=== PATIENT | male | born 1995 | race Caucasian/White ===

== ENCOUNTER 2016-10-26 05:03 | Emergency (ER) | payer BC ==
[2016-10-26] MEDS ORDERED: ARZOL Silver Nitrate Applicator TP ONE ×3 (05:38→06:40)
[2016-10-26] MEDS ORDERED: XYLOCAINE 1%/Epi 1:100000 MDV 20 ML ONE (05:43)
--- NOTE | 2016-10-26 05:52 | ERPHSYRPT ---
- History of Present Illness Time Seen by Provider: 10/26/16 05:31 Source: patient Exam Limitations: no limitations Patient Subjective Stated Complaint: pt states he had a blood blister on his back that popped tonight and it hasnt stopped bleeding. Triage Nursing Assessment: pt alert and oriented, answers questions approp. pt ambulatory with steady gait noted. respirations nonlabored with lungs cta. raised red blister to lt mid back with blood coming from center. Physician History: The patient is a 21-year-old male with his father complaining of a small blood Ratna on the left lower part of his back for the last 1-1/2 weeks. Over the last day the blood blister enlarged significantly. The enlarged blood blister started to bleed about 4 hours ago and has been very difficult to get clotted off. Patient denies any trauma to the area. The patient denies any clotting problems. Patient's past medical history is significant for scoliosis and 8 back surgeries for scoliosis. Timing/Duration: hour(s) (4) Quality: other (bleeding) Severity: moderate Location: torso Possible Causes: no cause identified Associated Symptoms: other (blood blister) Allergies/Adverse Reactions: morphine Adverse Reaction (Verified 10/26/16 05:23) Home Medications: No Home Meds 1 ea UD 10/26/16 [History] Hx Tetanus, Diphtheria Vaccination/Date Given: (unknown) Hx Influenza Vaccination/Date Given: No Hx Pneumococcal Vaccination/Date Given: No Immunizations Up to Date: Yes - Review of Systems Constitutional: No Fever, No Chills Eyes: No Symptoms Ears, Nose, & Throat: No Symptoms Respiratory: No Cough, No Dyspnea Cardiac: No Chest Pain, No Edema, No Syncope Abdominal/Gastrointestinal: No Abdominal Pain, No Nausea, No Vomiting, No Diarrhea Genitourinary Symptoms: No Dysuria Musculoskeletal: Back Pain (chronic), No Neck Pain Skin: Skin Lesions Neurological: No Dizziness, No Focal Weakness, No Sensory Changes Psychological: No Symptoms Endocrine: No Symptoms Hematologic/Lymphatic: No Symptoms Immunological/Allergic: No Symptoms All Other Systems: Reviewed and Negative - Past Medical History Pertinent Past Medical History: No Other Medical History: scoliosis - Past Surgical History Past Surgical History: Yes Other Surgical History: back surgery x8 to correct scoliosis - Social History Smoking Status: Never smoker Exposure to second hand smoke: Yes Drug Use: none Patient Lives Alone: No - Nursing Vital Signs Nursing Vital Signs: Initial Vital Signs Temperature 97.9 F Temperature Source Oral Pulse Rate 92 Respiratory Rate 16 Blood Pressure [Right Arm] 155/98 Pain Intensity 1 - Physical Exam General Appearance: no apparent distress, alert Eye Exam: PERRL/EOMI, eyes nml inspection Ears, Nose, Throat Exam: normal ENT inspection, pharynx normal, moist mucous membranes Neck Exam: normal inspection, non-tender, supple, full range of motion Respiratory Exam: normal breath sounds, lungs clear, No respiratory distress Cardiovascular Exam: regular rate/rhythm, normal heart sounds Gastrointestinal/Abdomen Exam: soft, mass, No tenderness Rectal Exam: not done Back Exam: other (back has old scar in midline from upper thoracic to sacrum for prior surgeries. There is a 0.5 mm raised blood-filled skin tag with small amount of bleeding from the center. Non-tender.) Extremity Exam: normal inspection, normal range of motion Neurologic Exam: alert, oriented x 3, cooperative, normal mood/affect, sensation nml, No motor deficits Skin Exam: normal color, warm, dry, other (blood-filled lesion as described in back exam.) SpO2: 99 Oxygen Delivery: Room Air Procedures - Incision and Drainage Timeout: Performed (20 min) Site: left lower back Anesthesia: 1% lidocaine w/epi cc's of anesthesia: other (10) Blade Size: 11 I & D Procedure: betadine prep, sterile drapes applied, sterile dressing applied , other (eliptical incision made with 11 blade scapel measuring 2.5 cm. bleeding hemagioma excised without difficulty. Tissue obtained and sent to pathology for evaluation.) Results: other (hemagioma obtained.) Progress: Wound closed with 4 5-0 ethilon sutures with hemostasis. Pt tolerated procedure well. - Progress Progress: improved Counseled pt/family regarding: diagnosis, need for follow-up - Departure Time of Disposition: 06:29 Departure Disposition: Home Clinical Impression: Hemangioma Condition: Stable Critical Care Time: No Additional Instructions: Keep area clean and dry. You may take a brief shower. Take augmentin twice a day for 10 days. Have sutures removed in 12 to 14 days. Prescriptions: Amoxicillin/Potassium Clav [Augmentin 875-125 Tablet] 875 mg PO BID #20 tablet
[2016-10-26] MEDS ORDERED: BACIGUENT PACKET ONE (06:15)
[2016-10-26] MEDS ORDERED: XYLOCAINE 1%/Epi 1:100000 MDV 20 ML IJ ONE (06:38)
[2016-10-26] MEDS ORDERED: BACIGUENT PACKET TP ONE (06:39)
[2016-10-26 06:54] VITALS: BP 159/89; PULSE 91; O2SAT 97
== END 2016-10-26 06:53 | disposition home or self-care (01) ==
LOC: ED 05:03
DX: D18.00 Hemangioma unspecified site (principal); S30.820A Blister (nonthermal) of lower back and pelvis, initial encounter
CPT/HCPCS: 36415; 88305; 99283; 99284

== ENCOUNTER 2021-03-16 09:06 | Emergency (ER) | payer OTHER ==
[2021-03-16 09:19] VITALS: BP 133/98; PULSE 89; O2SAT 99
[2021-03-16] MEDS ORDERED: Sodium Chloride 0.9% 1000 ML 1,000 ML IV STA (09:31)
[2021-03-16] MEDS ORDERED: TORAdol 30 mg Injection IV ONE (09:31)
--- NOTE | 2021-03-16 09:31 | ERPHSYRPT ---
- History of Present Illness Time Seen by Provider: 03/16/21 09:26 Source: patient Exam Limitations: no limitations Patient Subjective Stated Complaint: Pt c/o of mouth pain causing a headache for the past week Triage Nursing Assessment: Pt brought self to the ER, vitals wnl, rates pain as 6/10, hx of bad teeth due to placement, mouth pain, head ache, doesn't appear to be in any distress Physician History: pt has hx migraine not on chronic meds but prior pain clinic for neck/back. No trauma. no blood thinner, tender right upper incisor palp perc reproduces pain exactly no fluctuance to draine/incise. no meningismis , swallowing OK. TM nl bilateral. neck nontender , digastric and floor of mouth all nontender. Timing/Duration: gradual onset, days Severity: moderate ENT Location: dental Prearrival Treatment: over the counter meds Modifying Factors: Improves With: nothing Associated Symptoms: facial pain/swelling, headache, No dizziness, No drooling Allergies/Adverse Reactions: morphine Adverse Reaction (Verified 03/16/21 09:18) Hx Tetanus, Diphtheria Vaccination/Date Given: (unknown) Hx Influenza Vaccination/Date Given: No Hx Pneumococcal Vaccination/Date Given: No Travel Risk - International Travel Have you traveled outside of the country in past 3 weeks: No - Coronavirus Screening Are you exhibiting any of the following symptoms?: No Close contact with a COVID-19 positive Pt in past 14-21 Days: No - Vaccine Status Have you recieved a Covid-19 vaccination: No - Review of Systems Constitutional: No Fever, No Chills Eyes: No Symptoms Ears, Nose, & Throat: Mouth Pain (dental) Respiratory: No Cough, No Dyspnea Cardiac: No Chest Pain, No Edema, No Syncope Abdominal/Gastrointestinal: No Abdominal Pain, No Nausea, No Vomiting, No Diarrhea Genitourinary Symptoms: No Dysuria Musculoskeletal: No Back Pain, No Neck Pain Skin: No Symptoms, No Rash Neurological: No Dizziness, No Focal Weakness, No Sensory Changes Psychological: No Symptoms Endocrine: No Symptoms All Other Systems: Reviewed and Negative - Past Medical History Pertinent Past Medical History: Yes Musculoskeletal History: Arthritis, Fibromyalgia Other Medical History: scoliosis - Past Surgical History Past Surgical History: Yes Other Surgical History: back surgery x8 to correct scoliosis - Social History Smoking Status: Never smoker Exposure to second hand smoke: Yes Drug Use: none Patient Lives Alone: No - Nursing Vital Signs Nursing Vital Signs: Initial Vital Signs Temperature 98.1 F 03/16/21 09:11 Pulse Rate 89 03/16/21 09:11 Blood Pressure 133/98 03/16/21 09:11 O2 Sat by Pulse Oximetry 99 03/16/21 09:11 Pain Scale Pain Intensity 6 - Physical Exam General Appearance: no apparent distress, alert Eye Exam: bilateral eye: normal inspection, PERRL, EOMI, other (fundi benign) Ear Exam: bilateral ear: auricle normal, canal normal, TM normal Nasal Exam: normal inspection Throat Exam: pharynx normal, moist mucus membranes, No tonsillar exudate Neck Exam: supple Cardiovascular/Respiratory Exam: normal breath sounds, regular rate/rhythm Abdominal Exam: non-tender, soft Neurologic Exam: alert, oriented x 3, billet straightener II-XII nml as tested, normal mood/affect, nml cerebellar function, nml station & gait, sensation nml, No motor deficits, No facial droop, No slurred speech, No aphasia Skin Exam: normal color, warm, dry SpO2 Interpretation: normal SpO2: 99 O2 Delivery: Room Air - Course Nursing assessment & vital signs reviewed: Yes Ordered Tests: Active Orders 24 hr Category Date Time Status IV Insertion STAT Care 03/16/21 09:31 Active FACIAL BONES WO CONTRAST [CT] Stat Exams 03/16/21 09:33 Taken CBC W DIFF Stat Lab 03/16/21 09:57 Completed Medication Summary Discontinued Medications Generic Name Dose Route Start Last Admin Trade Name Bacilioq PRN Reason Stop Dose Admin Sodium Chloride 1,000 mls @ 999 mls/hr 03/16/21 09:31 03/16/21 10:22 Sodium Chloride 0.9% 1000 Ml IV 03/16/21 10:31 999 mls/hr .Q1H1M STA Administration Ceftriaxone Sodium/Dextrose 1 g in 50 mls @ 100 mls/hr 03/16/21 09:34 03/16/21 10:22 Rocephin 1 Gm-D5w 50 Ml Bag IV 03/16/21 10:03 100 mls/hr STAT STA 100 mls/hr Administration Sodium Chloride Confirm 03/16/21 10:19 Sodium Chloride 0.9% 1000 Ml Administered 03/16/21 10:20 Dose 1,000 mls @ ud .ROUTE .STK-MED ONE Ceftriaxone Sodium/Dextrose Confirm 03/16/21 10:19 Rocephin 1 Gm-D5w 50 Ml Bag Administered 03/16/21 10:20 Dose 1 g in 50 mls @ ud IV .STK-MED ONE Ketorolac Tromethamine 30 mg 03/16/21 09:31 03/16/21 10:22 Toradol 30 Mg Injection IV 03/16/21 09:32 30 mg STAT ONE Administration Ketorolac Tromethamine Confirm 03/16/21 10:19 Toradol 30 Mg Injection Administered 03/16/21 10:20 Dose 30 mg .ROUTE .STK-MED ONE Metoclopramide HCl 10 mg 03/16/21 09:32 03/16/21 10:22 Reglan 10 Mg/2 Ml IV 03/16/21 09:33 10 mg STAT ONE Administration Metoclopramide HCl Confirm 03/16/21 10:19 Reglan 10 Mg/2 Ml Administered 03/16/21 10:20 Dose 10 mg .ROUTE .STK-MED ONE Lab/Rad Data: Laboratory Result Diagrams 03/16/21 09:57 Laboratory Results 03/16/21 Range/Units 09:57 WBC 9.1 (4.0-10.5) K/mm3 RBC 5.05 (4.1-5.6) M/mm3 Hgb 14.3 (12.5-18.0) gm/dl Hct 44.1 (42-50) % MCV 87.3 (78-100) fl MCH 28.3 (26-32) pg MCHC 32.4 (32-36) g/dl RDW 13.4 (11.5-14.0) % Plt Count 241 (150-450) K/mm3 MPV 8.9 (7.5-11.0) fl Gran % 63.6 (36.0-66.0) % Eos # (Auto) 0.45 (0-0.5) Absolute Lymphs (auto) 2.09 (1.0-4.6) Absolute Monos (auto) 0.73 (0.0-1.3) Lymphocytes % 23.1 L (24.0-44.0) % Monocytes % 8.1 (0.0-12.0) % Eosinophils % 5.0 (0.00-5.0) % Basophils % 0.2 (0.0-0.4) % Absolute Granulocytes 5.76 (1.4-6.9) Basophils # 0.02 (0-0.4) - Progress Progress: improved, re-examined Progress Note: 03/16/21 10:40 pt had good pain relief and feels good to go. He feels that OTC Alleve will handle pain and will see Dentist to drain abscess this week early and return meantime if not improving. Counseled pt/family regarding: lab results, diagnosis, need for follow-up, rad results - Departure Departure Disposition: Home Clinical Impression: right upper dental abscess Condition: Good Critical Care Time: No Referrals: LOAN ISLAS [Primary Care Provider] - Instructions: Tooth Abscess (DC), Dental Pain (DC) Additional Instructions: see the dentist this week YAIR to drain abscess/ have definitive Tx. Return meantime if not improving, vomiting, fever or other concerns. Use over the counter Alleve for pain. also followup with your DrEagle for blood pressure elevation Prescriptions: Amox Tr/Potass Clav. 875 mg [Augmentin 875-125 Tablet] 875 mg PO BID #20 tablet
[2021-03-16] MEDS ORDERED: Reglan 10 MG/2 ML IV ONE (09:32)
[2021-03-16] MEDS ORDERED: ROCEPHIN 1 Gm-D5w 50 ml Bag** 1 G/50 ML IVPB IV STA (09:34)
[2021-03-16 10:07] LABS: Absolute Neutrophil Ct (ANC) 5.76 (1.4-6.9); BASOPHIL % 0.2 % (0.0-0.4); Basophil (Absolute #) 0.02 (0-0.4); Eosinophil (Absolute #) 0.45 (0-0.5); Hematocrit 44.1 % (42-50); Hemoglobin 14.3 gm/dl (12.5-18.0); Lymphocyte (Absolute #) 2.09 (1.0-4.6); Lymphocytes % 23.1 % (24.0-44.0); Mean Cell Volume 87.3 fl (78-100); Mean Corpuscular Hemoglobin 28.3 pg (26-32); Mean Corpuscular Hgb Concent. 32.4 g/dl (32-36); Mean Platelet Volume 8.9 fl (7.5-11.0); Monocyte (Absolute #) 0.73 (0.0-1.3); Monocytes % 8.1 % (0.0-12.0); Neutrophil % 63.6 % (36.0-66.0); Platelet Count 241 K/mm3 (150-450); Red Blood Count 5.05 M/mm3 (4.1-5.6); Red Cell Distribution Width 13.4 % (11.5-14.0); White Blood Count 9.1 K/mm3 (4.0-10.5)
[2021-03-16] MEDS ORDERED: ROCEPHIN 1 Gm-D5w 50 ml Bag** 1 G/50 ML IVPB IV ONE (10:19)
[2021-03-16] MEDS ORDERED: TORAdol 30 mg Injection ONE (10:19)
[2021-03-16] MEDS ORDERED: Reglan 10 MG/2 ML ONE (10:19)
[2021-03-16] MEDS ORDERED: Sodium Chloride 0.9% 1000 ML 1,000 ML ONE (10:19)
--- NOTE | 2021-03-16 19:26 | XRAY ---
Indication: Upper tooth pain. Abscess. Multiple contiguous images obtained through the facial bones without contrast. Comparison: None Right maxilla demonstrates a 1.5 cm right paramedian indeterminant cyst. No fracture, suspicious bony lesions, or radiopaque foreign body. Orbits including roof, rotmhan, and floors are intact. Minimal mucosal thickening both ethmoid and lesser degree both frontal sinuses. Remaining paranasal sinuses and nasal passages are clear. Minimal nasal septal deviation to the left. There are centimeter/subcentimeter submandibular and cervical lymph nodes bilaterally, none pathologically enlarged. Visualized noncontrasted soft tissues including base of the brain unremarkable. Impression: 1. Indeterminant 1.5 cm right paramedian maxilla cyst. 2. Minimal paranasal sinus disease and minimal nasal septal deviation. 3. Remaining CT facial bones without contrast exam is negative. Comment: Preliminary interpretation was made by [facility]. No critical discrepancy.
== END 2021-03-16 10:53 | disposition home or self-care (01) ==
LOC: ED 09:06
DX: K04.7 Periapical abscess without sinus (principal); R51.9 Headache, unspecified
CPT/HCPCS: 36415; 70486; 85025; 96360; 96365; 96374; 99284; J0696; J1885

== ENCOUNTER 2021-03-18 06:37 | Emergency (ER) | payer OTHER ==
--- NOTE | 2021-03-18 07:33 | ERPHSYRPT ---
- History of Present Illness Time Seen by Provider: 03/18/21 07:15 Source: patient Exam Limitations: no limitations Patient Subjective Stated Complaint: pt states he has an abscessed tooth and has had increased pain since previous visit. Triage Nursing Assessment: pt alert and oriented, answers questions approp. pt ambulatory with steady gait noted. respirations nonlabored with lungs cta. skin warm and dry. redness noted to top gums Physician History: This is a 25-year-old white male who was seen in this emergency department 3 days ago and diagnosed with dental infection. He was prescribed Augmentin and discharged to home with instructions to use ibuprofen for pain control. His pain is not improved. Over the holiday weekend, patient was unable to secure a dental appointment. He is here today because of persistent dental pain. He has had no fever or chills. Patient did undergo a CAT scan of the face which did not show definable or drainable dental abscess. Timing/Duration: gradual onset Severity: moderate ENT Location: dental Prearrival Treatment: over the counter meds, prescription meds Modifying Factors: Improves With: nothing Associated Symptoms: tooth pain Allergies/Adverse Reactions: morphine Adverse Reaction (Verified 03/16/21 09:18) Hx Tetanus, Diphtheria Vaccination/Date Given: (unknown) Hx Influenza Vaccination/Date Given: No Hx Pneumococcal Vaccination/Date Given: No Travel Risk - International Travel Have you traveled outside of the country in past 3 weeks: No - Coronavirus Screening Are you exhibiting any of the following symptoms?: No Close contact with a COVID-19 positive Pt in past 14-21 Days: No - Vaccine Status Have you recieved a Covid-19 vaccination: No - Review of Systems Constitutional: No Symptoms Eyes: No Symptoms Ears, Nose, & Throat: No Symptoms Respiratory: No Symptoms Cardiac: No Symptoms Abdominal/Gastrointestinal: No Symptoms Genitourinary Symptoms: No Symptoms Musculoskeletal: No Symptoms Skin: No Symptoms Neurological: No Symptoms Psychological: No Symptoms Endocrine: No Symptoms Hematologic/Lymphatic: No Symptoms Immunological/Allergic: No Symptoms All Other Systems: Reviewed and Negative - Past Medical History Pertinent Past Medical History: Yes Musculoskeletal History: Arthritis, Fibromyalgia Other Medical History: scoliosis - Past Surgical History Past Surgical History: Yes Other Surgical History: back surgery x8 to correct scoliosis - Social History Smoking Status: Never smoker Exposure to second hand smoke: Yes Drug Use: none Patient Lives Alone: No - Nursing Vital Signs Nursing Vital Signs: Initial Vital Signs Temperature 98.0 F 03/18/21 06:44 Pulse Rate 70 03/18/21 06:44 Respiratory Rate 20 03/18/21 06:44 Blood Pressure 156/116 03/18/21 06:44 O2 Sat by Pulse Oximetry 99 03/18/21 06:44 Pain Scale Pain Intensity 9 - Physical Exam General Appearance: no apparent distress, alert, anxiety Eye Exam: bilateral eye: normal inspection, PERRL, EOMI Ear Exam: bilateral ear: auricle normal Nasal Exam: normal inspection Throat Exam: pharynx normal, dental tenderness, moist mucus membranes Neck Exam: normal inspection, non-tender, supple, full range of motion, trachea midline Cardiovascular/Respiratory Exam: chest non-tender, no respiratory distress Abdominal Exam: non-tender Neurologic Exam: alert, oriented x 3, cooperative, shipping support II-XII nml as tested, normal mood/affect, nml cerebellar function, nml station & gait, sensation nml Skin Exam: normal color, warm, dry SpO2 Interpretation: normal SpO2: 99 O2 Delivery: Room Air - Course Nursing assessment & vital signs reviewed: Yes - Progress Progress: unchanged Counseled pt/family regarding: diagnosis, need for follow-up - Departure Departure Disposition: Home Clinical Impression: Pain, dental, Dental infection Condition: Stable Critical Care Time: No Referrals: LOAN ISLAS [Primary Care Provider] - Additional Instructions: Add 600 mg ibuprofen 3 times a day with food for the next 5 days. Call your dentist today to make arrangements for an appointment for definitive care. Continue your Augmentin antibiotic as prescribed. Prescriptions: Oxycodone HCl/Acetaminophen [Percocet 5-325 mg Tablet] 1 each PO Q8H PRN PRN #6 tablet MDD 3 PRN Reason: Pain
[2021-03-18] MEDS ORDERED: PERCOCET TABLET 5/325MG PO STA ×2 (07:38)
[2021-03-18] MEDS ORDERED: PERCOCET TABLET 5/325MG ONE (07:45)
[2021-03-18 08:08] VITALS: BP 157/101; PULSE 75; O2SAT 96
== END 2021-03-18 08:15 | disposition home or self-care (01) ==
LOC: ED 06:37
DX: K04.7 Periapical abscess without sinus (principal); K08.89 Other specified disorders of teeth and supporting structures
CPT/HCPCS: 99283; A9270-GY

== ENCOUNTER 2022-02-06 21:28 | Emergency (ER) | payer MEDICAID, OTHER ==
[2022-02-06 21:43] VITALS: O2SAT 99
[2022-02-06] MEDS ORDERED: PROTONIX 40 MG IV IV ONE ×2 (21:49→22:24)
[2022-02-06] MEDS ORDERED: GI COCKTAIL 45 ML (Maalox/Lidocaine) PO ONE ×2 (21:49→22:39)
[2022-02-06 22:20] LABS: Absolute Neutrophil Ct (ANC) 6.71 x10^3/uL (1.4-6.9); Basophil (Absolute #) 0.03 x10^3/uL (0-0.4); Eosinophil % 1.8 % (0.00-5.0); Eosinophil (Absolute #) 0.18 x10^3/uL (0-0.5); Hematocrit 43.4 % (42-50); Hemoglobin 14.4 g/dL (12.5-18.0); Lymphocyte (Absolute #) 2.17 x10^3/uL (1.0-4.6); Lymphocytes % 22.1 % (24.0-44.0); Mean Cell Volume 87.3 fL (78-100); Mean Corpuscular Hgb Concent. 33.2 g/dL (32-36); Mean Platelet Volume 9.2 fL (7.5-11.0); Monocytes % 7.1 % (0.0-12.0); Neutrophil % 68.5 % (36.0-66.0); Platelet Count 258 x10^3/uL (150-450); Red Blood Count 4.97 x10^6/uL (4.1-5.6); Red Cell Distribution Width 13.2 % (11.5-14.0); White Blood Count 9.8 x10^3/uL (4.0-10.5)
[2022-02-06] MEDS ORDERED: MAALOX ES 30 ML UNIT DOSE ONE ×2 (22:27→22:42)
[2022-02-06] MEDS ORDERED: XYLOCAINE VISCOUS 2% 15 ML CUP ONE ×2 (22:29→22:42)
[2022-02-06 22:34] LABS: ALBUMIN 4.1 g/dL (3.5-5.0); ALKALINE PHOSPHATASE 69 U/L (38-126); ANION GAP 11.6 MEQ/L (5-15); BLOOD UREA NITROGEN 23 mg/dL (9-20); CHLORIDE 99 mmol/L (98-107); Calcium 9.1 mg/dL (8.4-10.2); Carbon Dioxide 33 mmol/L (22-30); Creatinine 1 0.73 mg/dL (0.66-1.25); EST GLOMERULAR FILTRATION RATE > 60.0 ML/MIN; Glucose 91 mg/dL (74-106); Potassium 3.7 mmol/L (3.5-5.1); SGOT/AST 26 U/L (17-59); SGPT/ALT 30 U/L (0-50); SODIUM 139 mmol/L (137-145); Total Protein 7.1 g/dL (6.3-8.2)
--- NOTE | 2022-02-06 22:39 | ERPHSYRPT ---
- History of Present Illness Time Seen by Provider: 02/06/22 21:55 Historian: patient Patient Subjective Stated Complaint: acid reflux x2 days with nausea, no vomiting. Feels like "hot water coming up and is worse when laying flat". Triage Nursing Assessment: pt c/o acid reflux x2 days with nausea no vomiting. Pt c/o of it feeling like hot water coming up in his throat and is unable to lie flat. Pt has hx of scoliosis and has had several neck surgeries. Pt is no lo nger taking Percocet for pain as he's waiting to get in his with pain management doctor. Pt is no longer taking Tylenol for headaches and has currently been taking aspirin 975mg daily for headaches. Physician History: Patient is a 26-year-old white male with a long history of reflux type symptomatology. He has noted his reflux has been much worse the last few days. It is worse with lying down and increases with sleep waking him up with waterbrash. He is also increased his recent aspirin usage to nearly a gram a day and his symptoms are worse. He states that PPIs do not help him so tonight we are trying Protonix IV and GI cocktail. Timing/Duration: other (Chronic GERD symptoms) Activities at Onset: none Quality: burning Location: substernal Chest Pain Radiation: no radiation Severity of Pain-Max: severe Severity of Pain-Current: moderate Modifying Factors: Improves With: antacids, eating, sitting up, change in position Prior Chest Pain/Cardiac Workup: no prior cardiac workup Nitro Today/Relief: no nitro taken today Aspirin Treatment Today: no aspirin today Allergies/Adverse Reactions: morphine Adverse Reaction (Mild, Verified 02/06/22 21:50) Headache Home Medications: Aspirin EC 325 mg [Ecotrin 325 MG] 3 tab PO DAILY 02/06/22 [History] Hx Tetanus, Diphtheria Vaccination/Date Given: Yes Hx Influenza Vaccination/Date Given: No Hx Pneumococcal Vaccination/Date Given: No Immunizations Up to Date: Yes Travel Risk - International Travel Have you traveled outside of the country in past 3 weeks: No - Coronavirus Screening Are you exhibiting any of the following symptoms?: No Close contact with a COVID-19 positive Pt in past 14-21 Days: No - Vaccine Status Have you recieved a Covid-19 vaccination: No - Review of Systems Constitutional: No Fever, No Chills Eyes: No Symptoms Ears, Nose, & Throat: No Symptoms Respiratory: No Cough, No Dyspnea Cardiac: Chest Pain, No Edema, No Syncope Abdominal/Gastrointestinal: No Abdominal Pain, No Nausea, No Vomiting, No Diarrhea Genitourinary Symptoms: No Dysuria Musculoskeletal: No Back Pain, No Neck Pain Skin: No Rash Neurological: No Dizziness, No Focal Weakness, No Sensory Changes Psychological: No Symptoms Endocrine: No Symptoms All Other Systems: Reviewed and Negative - Past Medical History Pertinent Past Medical History: Yes Neurological History: No Pertinent History ENT History: No Pertinent History Cardiac History: No Pertinent History Respiratory History: Other Endocrine Medical History: No Pertinent History Musculoskeletal History: Other GI Medical History: GERD History: No Pertinent History Psycho-Social History: No Pertinent History Male Reproductive Disorders: No Pertinent History Other Medical History: Snores at night. 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 Follows Dr. Rodriguez for pain management. - Past Surgical History Past Surgical History: Yes Neuro Surgical History: No Pertinent History Cardiac: No Pertinent History Respiratory: No Pertinent History Gastrointestinal: No Pertinent History Genitourinary: No Pertinent History Musculoskeletal: Orthopedic Surgery Male Surgical History: No Pertinent History Other Surgical History: Pt has had 8 spinal surgeries due to scolosis with pin, rods and plates in place and 2 fusions. - Social History Smoking Status: Never smoker Exposure to second hand smoke: Yes Drug Use: none Patient Lives Alone: No - Nursing Vital Signs Nursing Vital Signs: Initial Vital Signs Temperature 97.9 F 02/06/22 21:42 Pulse Rate 94 H 02/06/22 21:42 Respiratory Rate 16 02/06/22 21:42 Blood Pressure 140/91 02/06/22 21:42 O2 Sat by Pulse Oximetry 99 02/06/22 21:42 Pain Scale Pain Intensity 6 - Physical Exam General Appearance: no apparent distress, alert Eye Exam: PERRL/EOMI, eyes nml inspection Ears, Nose, Throat Exam: normal ENT inspection, moist mucous membranes Neck Exam: normal inspection, non-tender, supple, full range of motion Respiratory Exam: normal breath sounds, lungs clear, No respiratory distress Cardiovascular Exam: regular rate/rhythm, normal heart sounds Gastrointestinal/Abdomen Exam: soft, No tenderness, No mass Back Exam: normal inspection, No CVA tenderness, No vertebral tenderness Extremity Exam: normal inspection, normal range of motion Neurologic Exam: alert, oriented x 3, cooperative, normal mood/affect, sensation nml, No motor deficits Skin Exam: normal color, warm, dry SpO2: 99 - Course Nursing assessment & vital signs reviewed: Yes EKG Interpreted by Me: RATE ([id number]), Sinus Rhythm, NORMAL AXIS, NORMAL INTERVALS, NORMAL QRS, NORMAL ST-T - Radiology Exams Chest X-ray Interpretation: Interpreted by me, Negative Ordered Tests: Active Orders 24 hr Category Date Time Status EKG-ER Only STAT Care 02/06/22 21:50 Active CHEST 1 VIEW (PORTABLE) Stat Exams 02/06/22 21:50 Ordered CBC W DIFF Stat Lab 02/06/22 22:05 Completed CMP Stat Lab 02/06/22 22:05 Received TROPONIN Q3H Lab 02/06/22 22:05 Received TROPONIN Q3H Lab 02/07/22 01:00 Ordered TROPONIN Q3H Lab 02/07/22 04:00 Ordered TROPONIN Q3H Lab 02/07/22 07:00 Ordered TROPONIN Q3H Lab 02/07/22 10:00 Ordered Medication Summary Discontinued Medications Generic Name Dose Route Start Last Admin Trade Name Freq PRN Reason Stop Dose Admin Al Hydrox/Mg Hydrox/Simethicone Confirm 02/06/22 22:27 Mag Hydrox/Al Hydrox/Simeth 30 Ml Udcup Administered 02/06/22 22:28 Dose 30 ml .ROUTE .STK-MED ONE Lidocaine HCl Confirm 02/06/22 22:29 Lidocaine Hcl 2% Viscous 15 Ml Udcup Administered 02/06/22 22:30 Dose 15 ml .ROUTE .STK-MED ONE Magnesium Hydroxide 45 ml 02/06/22 21:49 02/06/22 22:31 Mag Hydrx/Alum Hyd/Simeth/Lido 45 Ml Bottle PO 02/06/22 21:50 45 ml STAT ONE Administration Pantoprazole Sodium 40 mg 02/06/22 21:49 02/06/22 22:25 Pantoprazole 40 Mg Vial IV 02/06/22 21:50 40 mg STAT ONE Administration Pantoprazole Sodium Confirm 02/06/22 22:24 Pantoprazole 40 Mg Vial Administered 02/06/22 22:25 Dose 40 mg IV .STK-MED ONE Lab/Rad Data: Laboratory Result Diagrams 02/06/22 22:05 Laboratory Results 02/06/22 Range/Units 22:05 WBC 9.8 (4.0-10.5) x10^3/uL RBC 4.97 (4.1-5.6) x10^6/uL Hgb 14.4 (12.5-18.0) g/dL Hct 43.4 (42-50) % MCV 87.3 (78-100) fL MCH 29.0 (26-32) pg MCHC 33.2 (32-36) g/dL RDW 13.2 (11.5-14.0) % Plt Count 258 (150-450) x10^3/uL MPV 9.2 (7.5-11.0) fL Gran % 68.5 H (36.0-66.0) % Immature Gran % (Auto) 0.2 (0.00-0.4) % Nucleat RBC Rel Count 0.0 (0.00-0.1) % Eos # (Auto) 0.18 (0-0.5) x10^3/uL Immature Gran # (Auto) 0.02 (0.00-0.03) x10^3u/L Absolute Lymphs (auto) 2.17 (1.0-4.6) x10^3/uL Absolute Monos (auto) 0.70 (0.0-1.3) x10^3/uL Absolute Nucleated RBC 0.00 (0.00-0.01) x10^3u/L Lymphocytes % 22.1 L (24.0-44.0) % Monocytes % 7.1 (0.0-12.0) % Eosinophils % 1.8 (0.00-5.0) % Basophils % 0.3 (0.0-0.4) % Absolute Granulocytes 6.71 (1.4-6.9) x10^3/uL Basophils # 0.03 (0-0.4) x10^3/uL - Progress Progress: improved Air Movement: good Blood Culture(s) Obtained: No Antibiotics given: No - Departure Departure Disposition: Home Clinical Impression: GERD (gastroesophageal reflux disease) Condition: Stable Critical Care Time: No Referrals: LOAN ISLAS NP [Primary Care Provider] - Follow up/PCP as directed Instructions: Acid Reflux and GERD in Adults (DC) Prescriptions: PANTOPRAZOLE 40 mg Tablet [Protonix 40MG Tablet] 40 mg PO QAM 30 Days #30 tab
[2022-02-06 22:46] VITALS: BP 142/90; PULSE 89
--- NOTE | 2022-02-07 07:21 | XRAY ---
Indication: Chest pain. Acid reflux. Comparison: None Portable apical lordotic chest demonstrates normal heart and lungs. Bony thorax intact with mild levoscoliosis and bilateral thoracolumbar spinal hardware.
== END 2022-02-06 23:01 | disposition home or self-care (01) ==
LOC: ED 21:28
DX: K21.9 Gastro-esophageal reflux disease without esophagitis (principal); R07.89 Other chest pain
CPT/HCPCS: 36000; 36415; 71045; 80053; 84484; 85025; 93005; 96374; 99284; A9270-GY

== ENCOUNTER 2023-05-13 09:23 | Emergency (ER) | payer OTHER ==
--- NOTE | 2023-05-13 09:32 | ERPHSYRPT ---
- History of Present Illness Time Seen by Provider: 05/13/23 09:32 Source: patient Exam Limitations: no limitations Physician History: This is a 27-year-old white male patient of nurse practitioner Jerzy who also sees Dr. Rodriguez for pain management issues and presents with occipital region headache that is severe. Is different than his usual migraine headaches. He has not lost vision. Has been no nausea vomiting or diarrhea type symptoms. He has no flulike symptoms. Patient took his usual Percocet medication and his tenacity medication last evening. When he woke up today he had the headache posteriorly. He has had no fevers. He denies any head trauma. He does complain of some left side upper and lower dental pain in the molar regions. He admits to having poor dentition. Patient is refusing any type of pain medication here in the emergency department. He just wants to be sure that the CAT scan is performed. In addition, he would like antibiotics to treat his dental infection/dental pain. Timing/Duration: today Quality: aching Head Pain Location: occipital Severity of Pain-Max: moderate Severity of Pain-Current: moderate Recent Head Trauma: no recent headache/trauma Modifying Factors: Worsens With: noise Associated Symptoms: other, No dizziness, No loss of consciousness, No nausea/vomiting, No sinus infection, No sensitive to light, No speech problems, No trouble walking, No vision changes (Dental pain) Previous symptoms: no prior history, no recent treatment Allergies/Adverse Reactions: morphine Adverse Reaction (Mild, Verified 02/06/22 21:50) Headache Home Medications: Oxycodone HCl/Acetaminophen [Oxycodone-Acetaminophn 7.5-325] 1 ea TID 05/13/23 [History] Tizanidine HCl 4 mg [Zanaflex 4 MG] 4 mg PO DAILY 05/13/23 [History] Hx Tetanus, Diphtheria Vaccination/Date Given: Yes Hx Influenza Vaccination/Date Given: No Hx Pneumococcal Vaccination/Date Given: No Travel Risk - International Travel Have you traveled outside of the country in past 3 weeks: No - Coronavirus Screening Are you exhibiting any of the following symptoms?: No Close contact with a COVID-19 positive Pt in past 14-21 Days: No - Vaccine Status Have you recieved a Covid-19 vaccination: No - Review of Systems Constitutional: No Symptoms Eyes: No Symptoms Ears, Nose, & Throat: No Symptoms, Other (Left side posterior molar/dental pain) Respiratory: No Symptoms Cardiac: No Symptoms Abdominal/Gastrointestinal: No Symptoms Genitourinary Symptoms: No Symptoms Musculoskeletal: No Symptoms Skin: No Symptoms Neurological: Headache (Occipital region) Psychological: No Symptoms Endocrine: No Symptoms Hematologic/Lymphatic: No Symptoms Immunological/Allergic: No Symptoms All Other Systems: Reviewed and Negative - Past Medical History Pertinent Past Medical History: Yes Neurological History: No Pertinent History ENT History: No Pertinent History Cardiac History: No Pertinent History Respiratory History: Other Endocrine Medical History: No Pertinent History Musculoskeletal History: Other GI Medical History: GERD History: No Pertinent History Psycho-Social History: No Pertinent History Male Reproductive Disorders: No Pertinent History Other Medical History: Snores at night. 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 Follows Dr. Rodriguez for pain management. - Past Surgical History Past Surgical History: Yes Neuro Surgical History: No Pertinent History Cardiac: No Pertinent History Respiratory: No Pertinent History Gastrointestinal: No Pertinent History Genitourinary: No Pertinent History Musculoskeletal: Orthopedic Surgery Male Surgical History: No Pertinent History Other Surgical History: Pt has had 8 spinal surgeries due to scolosis with pin, rods and plates in place and 2 fusions. - Social History Smoking Status: Never smoker Exposure to second hand smoke: Yes Drug Use: none Patient Lives Alone: No - Nursing Vital Signs Nursing Vital Signs: Initial Vital Signs Temperature 97.2 F 05/13/23 09:37 Pulse Rate 104 H 05/13/23 09:37 Respiratory Rate 18 05/13/23 09:37 Blood Pressure 140/98 05/13/23 09:37 O2 Sat by Pulse Oximetry 98 05/13/23 09:37 Pain Scale Pain Intensity 8 - Physical Exam General Appearance: no apparent distress, alert, anxiety Eye Exam: PERRL/EOMI, eyes nml inspection Ears, Nose, Throat Exam: normal ENT inspection, moist mucous membranes Neck Exam: normal inspection, non-tender, supple, full range of motion Respiratory Exam: normal breath sounds, lungs clear, airway intact, No chest tenderness, No respiratory distress Cardiovascular Exam: regular rate/rhythm, normal heart sounds, normal peripheral pulses Gastrointestinal/Abdominal Exam: soft, normal bowel sounds, No tenderness Back Exam: normal inspection, normal range of motion, No CVA tenderness, No vertebral tenderness Extremity Exam: normal inspection, normal range of motion, pelvis stable Mental Status Exam: alert, oriented x 3, cooperative fire officer Exam: normal hearing, normal speech, PERRL, tongue midline Coordination/Gait Exam: normal gait, normal cerebellar function Skin Exam: normal color, warm, dry Lymphatic Exam: No adenopathy SpO2 Interpretation: normal O2 Delivery: Room Air - Course Nursing assessment & vital signs reviewed: Yes Ordered Tests: Active Orders 24 hr Category Date Time Status HEAD WITHOUT CONTRAST [CT] Stat Exams 05/13/23 10:02 Completed - Progress Progress: re-examined, unchanged Air Movement: good Progress Note: 05/13/23 10:07 This patient's medical issue is 1 of low complexity. Level complexity in the work-up performed is based on review of the patient's past medical history, review of the patient's medication list, review the patient's drug allergy list, history of present illness and physical findings on examination. This patient's work-up includes a CT scan of the head as well as a prescription for amoxicillin to be sent to his pharmacy for treatment of dental infection. 05/13/23 10:59 CT scan of the head without contrast was interpreted by the radiologist and I reviewed the impression. It is a normal CT scan of the head without contrast. Blood Culture(s) Obtained: No Antibiotics given: Yes (Prescription remotely sent to his pharmacy to treat dental infection) Counseled pt/family regarding: diagnosis, need for follow-up, rad results Medical Desision Making - Diagnostic Testing Diagnostic test were ordered, analyzed, and reviewed by me: Yes Radiological Interpretation: Reviewed by me, Teleradiologist Report - Risk of complications The pt has a mod risk of morbidity or mortality based on: Need for prescription drug management - Departure Departure Disposition: Home Clinical Impression: Headache, Dental infection, Pain, dental Condition: Stable Critical Care Time: No Referrals: LOAN ISLAS NP [Primary Care Provider] - Follow up/PCP as directed Additional Instructions: Take your antibiotics as prescribed. Continue your pain regimen as an outpatient. Follow-up with your pain specialist and a dentist for definitive care of your dental infection. Prescriptions: Amoxicillin 500 mg Cap [Amoxil 500 mg] 500 mg PO TID #30 cap
[2023-05-13 09:40] VITALS: TEMP 97.2
--- NOTE | 2023-05-13 10:29 | XRAY ---
Indication: Severe occipital headache. Multiple contiguous axial images obtained through the head without contrast. Comparison: None Normal brain parenchyma, ventricles, and bony calvarium. Visualized paranasal sinuses and mastoid air cells are clear. Impression: Normal CT head without contrast exam.
[2023-05-13 10:31] VITALS: PULSE 84; RESP 16; O2SAT 96
[2023-05-13 11:13] VITALS: BP 136/93
== END 2023-05-13 11:13 | disposition home or self-care (01) ==
LOC: ED 09:23
DX: R51.9 Headache, unspecified (principal); K04.7 Periapical abscess without sinus; K08.89 Other specified disorders of teeth and supporting structures; Z79.891 Long term (current) use of opiate analgesic; Z79.899 Other long term (current) drug therapy; Z28.310 Unvaccinated for COVID-19
CPT/HCPCS: 70450; 99283